=== PATIENT | female | born 1970 | race Caucasian/White ===

== ENCOUNTER 2021-04-17 22:27 | Emergency (ER) | payer BC, SELFPAY ==
[2021-04-17 22:30] VITALS: BP 123/66; PULSE 85; RESP 18; TEMP 36.4; O2SAT 98
--- NOTE | 2021-04-17 22:30 | DI.CT_ITS ---
Exam(s) CT HEAD CERVICAL SPINE WO EXAM: CT HEAD CERVICAL SPINE WO CLINICAL HISTORY: fall injury. TECHNIQUE: Imaging Protocol: Axial computed tomography images with coronal and sagittal reformatted images were created and reviewed COMPARISON: No exams were available for comparison FINDINGS: BRAIN: There are no skull fractures. Post inflammatory retention cysts are noted in both maxillary sinuses. No associated fluid levels. Sphenoid sinuses and ethmoidal air cells are clear. Frontal sinuses a re non developed. Mastoid air cells are clear. There is no evidence of intracranial hemorrhage, mass effect, or shift of midline structures. There are no extra-axial fluid collections. The ventricles are not enlarged or shifted and there is no blo od within the ventricular system nor within the basal cisterns. CERVICAL SPINE: There is no evidence of fracture nor listhesis. No significant prevertebral soft tissue swelling. Moderate disc space narrowing at C5-6 level. Small bilateral Luschka joint osteophytes and annular b ulging evident at this level. Other disc spaces exhibit normal height. There is no significant facet joint malalignment. No significant osseous lesions evident. IMPRESSION: No acute intracranial findings on this noninfused CT scan of the brain.Incidentally noted are retenti on cysts in both maxillary sinuses. No evidence of cervical spine fracture, malalignment, nor acute compromise of the cervical spinal can al. RADIATION DOSE DELIVERED: 1,006.71mGy.cm Total DLP DATA REPOSITORY: All CT scans at this facility are submitted to the National Radiology Data Registry (NRDR) Dose Index Registry (DIR) with the [employer] ([employer]). RADIATION OPTIMIZATION: All CT scans at this facility use at least one of these dose optimization te chniques: automated exposure control; mA and/or kV adjustment per patient size (includes targeted exa ms where dose is matched to clinical indication); or iterative reconstruction.
--- NOTE | 2021-04-17 22:39 | ED.GENADUL_ITS ---
Discharge Plan Disposition Patient Disposition: HOME Condition: Stable Discharge Details Clinical Impression: Abrasion of knee, right, Contusion of knee, right, Alcohol intoxication Primary Care Provider: Unknown,Unknown ED Provider: Milady Page Home Meds and New Rx's Prescriptions: No Action No Known Home Meds RF: 0 Discharge Instructions Instructions: Abuse of Alcohol (DC), Contusion in Adults (ED) Additional Instructions: do not drink any more alcohol tonight, you should limit alcohol use to avoid intoxication Ice to affected areas. use over the counter pain medication as needed for pain Referrals: Primary Care Provider [Outside] (as needed) Discharge Data Discharge Date/Time-TO BE ENTERED AT DEPARTURE: 04/17/21 23:45 Medical Decision Making presents by EMS after a fall at home. difficult historian, but right knee pain seems to be biggest c/o at present will draw routine lab, xray right knee, head ct and cspine in intoxicated patient who reportedly fell down stairs., head and cspine ct unremarkable. potassium 40 meq PO given for K 3.1, thiamine 100 mg po given Medical Records Medical records reviewed: Yes I reviewed the patient's medical records. Imaging Data Radiologic Study: Imaging: CT Scan Radiologist's impression: PROCEDURE INFORMATION: Exam: CT Head Without Contrast Exam date and time: 04/17/2021 10:38 PM Age: 50 years old Clinical indication: Injury or trauma; Blunt trauma (contusions or hematomas); Consciousness not specified; Injury date: 04/17/21; Injury details: Fall injury TECHNIQUE: Imaging protocol: Computed tomography of the head without contrast. COMPARISON: No relevant prior studies available. FINDINGS: Brain: Normal. No hemorrhage. Unremarkable white matter. No mass effect. Cerebral ventricles: No ventriculomegaly. Paranasal sinuses: Bilateral maxillary sinus mucous retention cysts Mastoid air cells: Visualized mastoid air cells are well aerated. Bones/joints: Unremarkable. No acute fracture. Soft tissues: Unremarkable. IMPRESSION: No acute findings PROCEDURE INFORMATION: Exam: CT Cervical Spine Without Contrast Exam date and time: 04/17/2021 10:38 PM Age: 50 years old Clinical indication: Injury or trauma; Blunt trauma (contusions or hematomas); Consciousness not specified; Injury date: 04/17/21; Injury details: Fall injury TECHNIQUE: Imaging protocol: Computed tomography images of the cervical spine without contrast. Radiation optimization: All CT scans at this facility use at least one of these dose optimization techniques: automated exposure control; mA and/or kV adjustment per patient size (includes targeted exams where dose is matched to clinical indication); or iterative reconstruction. COMPARISON: No relevant prior studies available. FINDINGS: Vertebrae: Cervical degenerative disc disease and facet joint arthropathy noted. No evidence for fracture, dislocation or subluxation. Soft tissues: Unremarkable. IMPRESSION: No acute findings Dictated and Authenticated by: Giorgi Melgar MD. Patient is monitored in the department and remained hemodynamically stable. She is alert and oriented to person and situation. Labs and imaging is reviewed and she is cleared medically and is being discharged to the care of her fianc? and friend Radiologic Study #2: Imaging: X-Ray (right knee) Lab Data Lab results reviewed: Yes I reviewed the patient's lab results. Lab results narrative: Laboratory Results - last 24 hr 04/17/21 04/17/21 04/17/21 22:33 22:33 22:33 WBC 11.81 H RBC 4.53 Hgb 15.0 Hct 44.8 MCV 98.9 H MCH 33.1 H MCHC 33.5 RDW 13.9 Plt Count 397 MPV 8.9 Immature Gran % 1.3 Neutrophils % 40.5 Lymphocytes % 48.3 Monocytes % 7.4 Eosinophils % 1.8 Basophils % 0.7 Nucleated RBC % 0 Absolute Neutrophils 4.78 Absolute Lymphocytes 5.70 H Absolute Monocytes 0.87 H Absolute Eosinophils 0.21 Absolute Basophils 0.08 RBC Morphology Normal Sodium 145 Potassium 3.1 L Chloride 106 Carbon Dioxide 24.5 Anion Gap 14.5 H BUN 9 Creatinine 0.9 Estimated GFR/1.73 m2 >= 60.00 Glucose 148 H Calcium 8.9 Magnesium 2.4 Total Bilirubin 0.2 AST 16 ALT 22 Alkaline Phosphatase 90 Total Protein 7.8 Albumin 4.3 Ethyl Alcohol 310.6 HPI General Mode of arrival: EMS . Date/Time Provider Initiated Documentation: 04/17/21 22:30 . Limitations to Documentation: altered mental status . Information obtained by: patient and EMS . HPI Narrative: patient presents for evaluation after a fall at home down approx 4 steps. patient intoxicated and reports right knee pain. witness denies head injury or LOC. patient with abrasion to right knee approx quarter size. denies any other c/o. admits to multiple shots and some hard lemonade. Related Data Home Medications Medication Instructions Recorded Confirmed Unknown [No Known Home Meds] 04/17/21 04/17/21 Allergies Allergy/AdvReac Type Severity Reaction Status Date / Time acetaminophen [From Tylenol] AdvReac Severe n/v Unverified 04/17/21 22:36 General Stated Complaint: ETOHWithdr SOBEIDA: 2 Review of Systems All systems reviewed & are unremarkable except as noted in HPI and below and Unobtainable due to mental status (intoxicated) Musculoskeletal Musculoskeletal: Reports arthralgias (right knee, has full ROM, no obvious deformity) Integumentary/Breasts Skin/Breast: Reports sores (abrasion) [facility] Surgical History (Updated 08/12/18 @ 14:[address]) Abdominal hysterectomy (~08/2010) BSO section X 3 SINUS SURGERY (~2006) Family History Mother Essential hypertension Diabetes Father Personal history of malignant neoplasm LUNG/BRAIN GRANDDAUGHTER Personal history of malignant neoplasm BRAIN Social History Smoking/Tobacco Use Status: Current every day Tobacco Type: cigarettes Smoking risk assessment performed?: Yes Alcohol Intake: current Alcohol Intake frequency: a few times a week Alcohol type: hard liquor Drug use: Never Substance use type: does not use Do you feel safe at home: Yes Do you feel safe in your relationship?: Yes Exam Const General: no acute distress and intoxicated appearing Nutritional Appearance: average body habitus Orientation: alert, awake and oriented x3 Limitations: altered mental status HENMT Head: normal to inspection, normocephalic and atraumatic Resp Effort & Inspection: normal respiratory effort Cardio Rate: regular rate Rhythm: regular rhythm GI Inspection: normal to inspection Palpation: soft and nontender Back/Spine/Pelvis Back: no CVA tenderness Cervical Spine: normal cervical lordosis Thoracic/Lumbar Spine: thoracic and lumbar spine normal to inspection Skin Lesions: other (abrasion) Wounds: no wounds Neuro General: patient alert, patient awake, patient oriented x3, moves all extremities and no focal motor deficits Cognition: abnormal cognition (intoxicated) Motor: muscle tone normal throughout and strength 5/5 throughout Extrem Right lower extremity: normal to inspection and full ROM Psych Appearance: grossly normal Speech and Movement: agitated and restless Mood: labile mood Affect: irritable affect Attitude: refuses to answer Insight: poor Judgment: poor Course Vital Signs Vital signs: Vital Signs Temperature 36.4 C L 04/17/21 22:30 Pulse 85 04/17/21 22:30 Respiratory Rate 18 04/17/21 22:30 Blood Pressure 123/66 04/17/21 22:30 Pulse Oximetry 98 04/17/21 22:30 Temperature 36.4 C L 04/17/21 22:30 Temperature Source Temporal Artery Scan 04/17/21 22:30 Pulse 85 04/17/21 22:30 Respiratory Rate 18 04/17/21 22:30 Blood Pressure 123/66 04/17/21 22:30 Blood Pressure Position Supine 04/17/21 22:30 Pulse Oximetry 98 04/17/21 22:30 Oxygen Delivery Method Room Air 04/17/21 22:30 Oxygen Flow Rate 0 04/17/21 22:30 Pain Level 9 04/17/21 22:30
[2021-04-17 22:41] LABS: Abs Immature Grans 0.15 10^3/uL (0.0-0.06); Absolute Basophil Count 0.08 10^3/uL (0.0-0.2); Absolute Eosinophil Count 0.21 10^3/uL (0.0-0.7); Absolute Monocyte Count 0.87 10^3/uL (0.1-0.8); Basophils % 0.7; Eosinophils % 1.8; HCT 44.8 % (36.0-46.0); Immature Grans % 1.3; Lymphocytes % 48.3; MCH 33.1 pg (27.0-33.0); MCHC 33.5 % (32.0-36.0); MCV 98.9 fL (80-95); MPV 8.9 fL (8.0-11.0); Monocytes % 7.4; Neutrophils % 40.5; Nucleated RBC 0 %; Platelet Count 397 10^3/uL (130-400); RBC 4.53 10^6/uL (3.93-5.22); RDW 13.9 % (11.7-14.6); WBC 11.81 10^3/uL (4.4-10.8)
[2021-04-17 22:42] LABS: Absolute Neutrophil Count 4.78 10^3/uL (1.2-6.7)
[2021-04-17] MEDS: THIAMINE 100 MG in Normal Saline 100 ML 200 MG IVPB (22:45)
[2021-04-17] MEDS: Normal Saline 1,000 ML 1000 ML IV (22:45)
--- NOTE | 2021-04-17 22:45 | DI.RAD_ITS ---
Exam(s) XR KNEE RT 4V AP,LAT,PATIENCE,PAT EXAM: XR KNEE RT 4V AP,LAT,PATIENCE,PAT CLINICAL HISTORY: right knee pain, fall injury. TECHNIQUE: 2D digital imaging was performed. COMPARISON: No exams were available for comparison FINDINGS: There is no evidence of fracture or obvious joint effusion. No degenerative changes nor osteochondra l defects. Bone density is normal. No significant osseous lesions. IMPRESSION: DATA REPOSITORY: RADIATION DOSE DELIVERED:
[2021-04-17 22:58] LABS: ALT 22 U/L (14-59); AST 16 U/L (15-37); Albumin 4.3 g/dL (3.4-5.0); Alkaline Phosphatase 90 U/L (46-116); Anion Gap 14.5 mmol/L (3-11); BUN 9 mg/dL (7-18); Bilirubin, Total 0.2 mg/dL (0.2-1.0); CO2 24.5 mmol/L (21.0-32.0); CREATININE 0.9 mg/dL (0.55-1.02); Calcium 8.9 mg/dL (8.5-10.1); Chloride 106 mmol/L (98-107); Glucose 148 mg/dL (74-106); Magnesium 2.4 mg/dL (1.8-2.4); Potassium 3.1 mmol/L (3.5-5.1); Sodium 145 mmol/L (136-145); Total Protein 7.8 g/dL (6.4-8.2)
[2021-04-17 22:59] LABS: Diff Comment Diff Reviewed; RBC Morphology Normal
[2021-04-17 23:01] LABS: ETHANOL BLOOD 310.6 mg/dL (<3)
--- NOTE | 2021-04-17 23:10 | DI.VRAD_ITS ---
PROCEDURE INFORMATION: Exam: CT Head Without Contrast Exam date and time: 04/17/2021 10:38 PM Age: 50 years old Clinical indication: Injury or trauma; Blunt trauma (contusions or hematomas); Consciousness not specified; Injury date: 04/17/21; Injury details: Fall injury TECHNIQUE: Imaging protocol: Computed tomography of the head without contrast. COMPARISON: No relevant prior studies available. FINDINGS: Brain: Normal. No hemorrhage. Unremarkable white matter. No mass effect. Cerebral ventricles: No ventriculomegaly. Paranasal sinuses: Bilateral maxillary sinus mucous retention cysts Mastoid air cells: Visualized mastoid air cells are well aerated. Bones/joints: Unremarkable. No acute fracture. Soft tissues: Unremarkable. IMPRESSION: No acute findings PROCEDURE INFORMATION: Exam: CT Cervical Spine Without Contrast Exam date and time: 04/17/2021 10:38 PM Age: 50 years old Clinical indication: Injury or trauma; Blunt trauma (contusions or hematomas); Consciousness not specified; Injury date: 04/17/21; Injury details: Fall injury TECHNIQUE: Imaging protocol: Computed tomography images of the cervical spine without contrast. Radiation optimization: All CT scans at this facility use at least one of these dose optimization techniques: automated exposure control; mA and/or kV adjustment per patient size (includes targeted exams where dose is matched to clinical indication); or iterative reconstruction. COMPARISON: No relevant prior studies available. FINDINGS: Vertebrae: Cervical degenerative disc disease and facet joint arthropathy noted. No evidence for fracture, dislocation or subluxation. Soft tissues: Unremarkable. IMPRESSION: No acute findings Dictated and Authenticated by: Giorgi Melgar MD. Ordering:GUY Henning MD
[2021-04-17 23:13] VITALS: BP 125/56; PULSE 86
[2021-04-17] MEDS: Potassium Chloride 20 MEQ TABCR 40 MEQ PO (23:33)
--- NOTE | 2021-04-17 23:34 | DI.VRAD_ITS ---
PROCEDURE INFORMATION: Exam: XR Left Knee Exam date and time: 04/17/2021 11:02 PM Age: 50 years old Clinical indication: Right; Patient HX: Fall, knee pain TECHNIQUE: Imaging protocol: XR Left knee. Views: 4 or more views. COMPARISON: No relevant prior studies available. FINDINGS: Bones/joints: Normal. Soft tissues: Normal. IMPRESSION: No acute findings. Dictated and Authenticated by: Giorgi Melgar MD. Ordering:GUY Henning MD
== END 2021-04-17 23:45 | disposition home or self-care (01) ==
PROVIDERS: Emergency Provider Nurse Practitioner Acute Care
DX: S80.01XA Contusion of right knee, initial encounter (principal); W10.8XXA Fall (on) (from) other stairs and steps, initial encounter; F10.129 Alcohol abuse with intoxication, unspecified
CPT/HCPCS: 80053; 96361; 96365; 99284; 70450; 72125; 73564; 80320; 83735; 85025; 99283